=== PATIENT | male | born 1955 | race Caucasian/White ===

== ENCOUNTER 2019-06-24 07:21 | Emergency (ER) | payer MEDICAID ==
[~2019-06-24] VITALS: Ht 160 cm; Wt 60.0 kg
[2019-06-24 07:29] VITALS: Ht 160 cm; Wt 60.0 kg
[2019-06-24 08:27] VITALS: BP 135/65
== END 2019-06-24 08:27 | disposition home or self-care (01) ==
LOC: ED 07:21
DX: J40 Bronchitis, not specified as acute or chronic (principal); F17.200 Nicotine dependence, unspecified, uncomplicated; Z87.442 Personal history of urinary calculi
CPT/HCPCS: Q0092

== ENCOUNTER 2019-07-04 07:43 | Emergency (ER) | payer MEDICAID ==
[~2019-07-04] VITALS: Ht 160 cm; Wt 61.2 kg
[2019-07-04 07:51] VITALS: BP 141/72
== END 2019-07-04 08:16 | disposition home or self-care (01) ==
LOC: ED 07:43
DX: M54.5 Low back pain (principal); Z87.442 Personal history of urinary calculi
CPT/HCPCS: J1885

== ENCOUNTER 2019-07-26 10:11 | Emergency (ER) | payer OTHER, MEDICAID ==
[~2019-07-26] VITALS: Ht 160 cm; Wt 56.7 kg
[2019-07-26 10:15] VITALS: Ht 160 cm; Wt 56.7 kg
[2019-07-26 11:11] VITALS: BP 174/89
== END 2019-07-26 11:12 | disposition home or self-care (01) ==
LOC: ED 10:11
DX: L98.9 Disorder of the skin and subcutaneous tissue, unspecified (principal); F17.210 Nicotine dependence, cigarettes, uncomplicated; R03.0 Elevated blood-pressure reading, without diagnosis of hypertension; Z71.6 Tobacco abuse counseling
CPT/HCPCS: 99406